=== PATIENT | female | born 1980 ===

== ENCOUNTER 2017-04-19 16:28 | Observation (INO) | payer OTHER ==
[2017-04-19 16:39] VITALS: BP 118/75; PULSE 81; RESP 16; TEMP 99.7; O2SAT 99
--- NOTE | 2017-04-19 17:30 | ED PDOC ---
HPI: Female Pain Chief Complaint (Provider): problems with urination History Per: Patient History/Exam Limitations: no limitations Onset/Duration Of Symptoms: Hrs (6) Current Symptoms Are (Timing): Still Present Quality Of Discomfort: Sharp, Other ("pop") Associated Symptoms: Constipation, Urinary Symptoms. denies: Fever, Chills, Nausea, Vomiting, Diarrhea, Loss Of Appetite, Back Pain, Chest Pain Alleviating Factors: None Additional Complaint(s): Pt is 36 yo F with PMH constipation who presents to the ED today 04/19/17 due to issues with urination. Pt states that she is always constipated, and this morning was straining to stool while she was urinating and heard a "pop." Later in the day she felt a sharp pain upon urination, and thought it may be a UTI. She went to pharmacy after work and bought AZO, which she states usually helps her with symptoms of a UTI, which she has had before. When she urinated again after taking AZO, pt states she did not have a bowel movement and there were no feces in the toilet, but she saw and smelled feces on the toilet paper after wiping. When pt was asked for urine sample in the ED, she said that once again she saw and smelled feces. Abnormal Vaginal Bleeding: No Last Menstral Period: last week, pt does not remember exact date : 2 (aborta 1) Para: 1 <Vira Jacobsen - Last Filed: 04/19/17 19:01> <Emy Jackson - Last Filed: 04/23/17 16:26> Time Seen by Provider: 04/19/17 16:44 Chief Complaint (Nursing): Female Genitourinary Supervising Attending Note - Supervising Attending Note The Documented history was done by the: Physician Claim Rep, Attending Physician The documented physical exam was done by the: Physician Claim Rep, Attending Physician - Attestation: I have personally seen and examined this patient.: Yes I have fully participated in the care of the patient.: Yes I have reviewed all pertinent clinical information, including history, physical exam and plan: Yes <Emy Jackson - Last Filed: 04/23/17 16:26> Past Medical History Reviewed: Historical Data, Nursing Documentation, Vital Signs Vital Signs: Last Vital Signs Temp 99.7 F H 04/19/17 16:36 Pulse 81 04/19/17 16:36 Resp 16 04/19/17 16:36 BP 118/75 04/19/17 16:36 Pulse Ox 99 04/19/17 16:36 - Medical History PMH: No Chronic Diseases - Surgical History Surgical History: - Family History Family History: States: No Known Family Hx - Social History Alcohol: None Drugs: Denies <Vira Jacobsen - Last Filed: 04/19/17 19:01> Vital Signs: Last Vital Signs Temp 99.7 F H 04/19/17 16:36 Pulse 81 04/19/17 16:36 Resp 16 04/19/17 16:36 BP 118/75 04/19/17 16:36 Pulse Ox 99 04/19/17 22:17 <Emy Jackson - Last Filed: 04/23/17 16:26> - Allergies Allergies/Adverse Reactions: Allergies Allergy/AdvReac Type Severity Reaction Status Date / Time No Known Allergies Allergy Verified 04/19/17 16:36 Review of Systems ROS Statement: Except As Marked, All Systems Reviewed And Found Negative Gastrointestinal: Positive for: Constipation (chronic, last BM prior to this morning 1 week ago). Negative for: Nausea, Vomiting, Abdominal Pain, Diarrhea Genitourinary Female: Positive for: Dysuria, Other (as per HPI, pt sees/smells feces on toilet paper after wiping after urinating.). Negative for: Frequency, Incontinence, Hematuria <DelmarJaea - Last Filed: 04/19/17 19:01> Physical Exam - Reviewed Nursing Documentation Reviewed: Yes Vital Signs Reviewed: Yes - Physical Exam Appears: Positive for: Non-toxic, No Acute Distress Head Exam: Positive for: ATRAUMATIC Skin: Positive for: Warm, Dry Eye Exam: Positive for: Normal appearance, EOMI, PERRL ENT: Negative for: Pharyngeal Erythema, Tonsillar Exudate Neck: Positive for: Normal, Painless ROM, Supple Cardiovascular/Chest: Positive for: Regular Rate, Rhythm. Negative for: Murmur Respiratory: Positive for: Normal Breath Sounds. Negative for: Accessory Muscle Use, Wheezing, Respiratory Distress Gastrointestinal/Abdominal: Positive for: Bowel Sounds, Soft. Negative for: Tenderness, Organomegaly, Mass, Guarding Pelvic Exam: Positive for: External Exam Normal, Other (no obvious abnormality) . Negative for: Discharge (no obvious discharge) Back: Positive for: L CVA Tenderness (very mild). Negative for: R CVA Tenderness Extremity: Positive for: Normal ROM. Negative for: Deformity Neurologic/Psych: Positive for: Alert, Oriented <Vira Jacobsen - Last Filed: 04/19/17 19:01> - Laboratory Results Result Diagrams: 04/19/17 18:31 04/19/17 18:31 - ECG O2 Sat by Pulse Oximetry: 99 <Vira Jacobsen - Last Filed: 04/19/17 19:01> - Laboratory Results Result Diagrams: 04/19/17 18:31 04/19/17 18:31 <Emy Jackson - Last Filed: 04/23/17 16:26> Medical Decision Making Medical Decision Making: Pt seen, examined, evaluated. 17:00 -Urine dip: positive for nitrates -UA/Urine C&S 17:30 External pelvic exam done- no lesions, no obvious discharge visible. Pt urinated once more in ED, stated she saw blood in urine. - CBC - CMP - PT/PTT - NS hydration - PO contrast ordered to prep pt for possible CT. 18:20 -UA + for nitrates and 4 urobili 18:45 -CT w/ PO contrast ordered to r/o fistula Case discussed with Dr. Jackson <Vira Jacobsen - Last Filed: 04/19/17 19:01> Disposition - Patient ED Disposition Is Patient to be Admitted: Transfer of Care (to Dr. Jackson) - Disposition Disposition Time: 19:01 <Vira Jacobsen - Last Filed: 04/19/17 19:01> <Emy Jackson - Last Filed: 04/23/17 16:26> - Clinical Impression Clinical Impression: Urinary tract infection - Disposition Condition: STABLE
[2017-04-19] MEDS ORDERED: Iohexol 240 (50 ml) PO STA (17:57)
[2017-04-19] MEDS ORDERED: Sodium Chloride 0.9% 1,000 ML IV STA (17:57)
[2017-04-19 18:13] LABS: RBC URINE < 1 /hpf (0-3); URINE BACTERIA RARE (<OCC); URINE BILIRUBIN NEGATIVE (NEGATIVE); URINE BLOOD SMALL (NEGATIVE); URINE COLOR AMBER (YELLOW); URINE GLUCOSE (UA) NEG (Normal); URINE KETONE NEGATIVE (NEGATIVE); URINE LEUKOCYTE ESTERASE NEG Leu/uL (Negative); URINE PROTEIN NEGATIVE (NEGATIVE); WBC URINE 1 /hpf (0-5)
[2017-04-19] MEDS ORDERED: Iohexol 240 (50 ml) ONE (18:32)
[2017-04-19 18:37] LABS: BASO # 0.1 K/uL (0.0-0.2); BASO % 1.1 % (0.0-2.0); EOS # 0.2 K/uL (0.0-0.7); EOS % 2.9 % (0.0-4.0); HEMATOCRIT 41.5 % (34.0-47.0); LYMPH % 33.3 % (20.0-40.0); MEAN CELL VOLUME 84.7 fl (81.0-99.0); MEAN CORPUSCULAR HEMOGLOBIN 28.4 pg (27.0-31.0); MEAN CORPUSCULAR HGB CONC 33.5 g/dL (33.0-37.0); MONO # 0.4 K/uL (0.0-0.8); MONO % 7.2 % (0.0-10.0); NEUT # 3.3 K/uL (1.8-7.0); NEUT % 55.5 % (50.0-75.0); NRBC % 0.1 % (0.0-0.0); RED CELL DISTRIBUTION WIDTH 13.3 % (11.5-14.5)
[2017-04-19 18:46] LABS: ALB/GLOB RATIO 1.5 (1.0-2.1); ALKALINE PHOSPHATASE 51 U/L (38-126); ALT/SGPT 20 U/L (9-52); AST/SGOT 22 U/L (14-36); BILIRUBIN,TOTAL 0.5 mg/dl (0.2-1.3); BLOOD UREA NITROGEN 13 mg/dl (7-17); CARBON DIOXIDE 23 mmol/L (22-30); CHLORIDE 106 mmol/L (98-107); GFR AFRICAN-AMERICAN > 60; GLUCOSE,RANDOM 79 mg/dL (65-105); SODIUM 142 mmol/l (132-148); TOTAL PROTEIN 8.1 G/DL (6.3-8.2)
[2017-04-19 18:48] LABS: PARTIAL THROMBOPLASTIN TIME 29.9 Seconds (25.6-37.1)
[2017-04-19] MEDS ORDERED: cefTRIAXone (Rocephin) 1 gm Inj ONE (19:40)
--- NOTE | 2017-04-19 22:07 | ED PDOC ---
- Laboratory Results Result Diagrams: 04/19/17 18:31 04/19/17 18:31 - ECG O2 Sat by Pulse Oximetry: 99 (RA) Pulse Ox Interpretation: Normal Medical Decision Making Medical Decision Making: Receiving sign out: Patient signed out to me by Dr. Jacobsen (resident) pending CT results.. Scribe Attestation: Documented by Rula Chan acting as a scribe for Emy Jackson MD. Provider Attestation: All medical record entries made by the Scribe were at my direction and personally dictated by me. I have reviewed the chart and agree that the record accurately reflects my personal performance of the history, physical exam, medical decision making, and the department course for this patient. I have also personally directed, reviewed, and agree with the discharge instructions and disposition. Disposition Counseled Patient/Family Regarding: Studies Performed, Diagnosis, Need For Followup, Rx Given - Clinical Impression Clinical Impression: Urinary tract infection - POA Present On Arrival: None - Disposition Disposition: Routine/Home Disposition Time: 18:00 Condition: STABLE Progress Note - Review of Symptoms Events since last encounter: Time: 1999 Patient stable, resting in room. EXAM: CT Abdomen and Pelvis Without Intravenous Contrast EXAM DATE/TIME: 04/19/2017 6:52 PM CLINICAL HISTORY: 36 years old, female; Signs and symptoms; Constipation and other: R/O fistula; Prior surgery; Surgery date: 6+ months; Surgery type: 1 ; Additional info: Fecal urination R/O fistula. Sent phy. Doc. TECHNIQUE: Axial computed tomography images of the abdomen and pelvis without intravenous contrast. All CT scans at this facility use one or more dose reduction techniques, viz.: automated exposure control; ma/kV adjustment per patient size (including targeted exams where dose is matched to indication; i.e. head); or iterative reconstruction technique. Coronal and sagittal reformatted images were created and reviewed. COMPARISON: No relevant prior studies available. FINDINGS: Lower thorax: No acute findings. ABDOMEN: Liver: Unremarkable. Gallbladder and bile ducts: Unremarkable. No calcified stones. No ductal dilation. Pancreas: Unremarkable. No ductal dilation. Spleen: Unremarkable. No splenomegaly. Adrenals: Unremarkable. No mass. Kidneys and ureters: Unremarkable. No obstructing stones. No hydronephrosis. No convincing or secondary evidence of a bowel fistula to the ureters. Stomach and bowel: No evidence of a colovesical fistula as the colon does not make contact with the urinary bladder. Few loops of small bowel contact a short segment of the anterior bladder although there is no evidence of fistula, soft tissue thickening or contrast within the urinary bladder to suggest an enterovesical fistula. The anteverted uterus rests on and naik the majority of the urinary bladder from the bowel. No convincing or secondary evidence of a fistula to the ureters. No obstruction. Appendix: No findings to suggest acute appendicitis. PELVIS: Bladder: See above. Reproductive: See above. ABDOMEN and PELVIS: Intraperitoneal space: Unremarkable. No free air. No significant fluid collection. Bones/joints: No acute fracture. No dislocation. Soft tissues: Unremarkable. Vasculature: Unremarkable. No abdominal aortic aneurysm. Lymph nodes: Unremarkable. No enlarged lymph nodes. IMPRESSION: No evidence of a colovesical fistula as the colon does not make contact with the urinary bladder, and no evidence of an enterovesical fistula. No acute finding. Thank you for allowing us to participate in the care of your patient. Dictated and Authenticated by: Avery Bishop MD 04/19/2017 9:46 PM Eastern Time ([place] & [place])
--- NOTE | 2017-04-20 07:23 | CT ---
PROCEDURE: CT Abdomen and Pelvis with Oral contrast. HISTORY: fecal urination r/o fistula COMPARISON: None. TECHNIQUE: Contiguous axial images of the abdomen and pelvis. Oral contrast was administered. No IV contrast given. Coronal and Sagittal reformats generated. Radiation dose: Total exam DLP = 261 mGy-cm. This CT exam was performed using one or more of the following dose reduction techniques: Automated exposure control, adjustment of the mA and/or kV according to patient size, and/or use of iterative reconstruction technique. FINDINGS: LOWER THORAX: No pleural or pericardial effusion is identified. A punctate calcified granuloma is seen at the right lower lobe within the costophrenic sulcus laterally with linear atelectasis or fibrosis minimally seen in the right middle lobe and right lower lobe bases. LIVER: Unremarkable. No gross lesion or ductal dilatation. GALLBLADDER AND BILE DUCTS: Unremarkable. PANCREAS: Unremarkable. No mass. No ductal dilatation. SPLEEN: Unremarkable. No splenomegaly. ADRENALS: Unremarkable. KIDNEYS AND URETERS: Unremarkable. No stone or hydronephrosis. BLADDER: Urinary bladder appears mildly distended. There is no oral contrast identified within the lumen of the urinary bladder. Oral contrast opacifies large and small bowel up to the mid to distal sigmoid colon but none at the distal rectosigmoid region. A colovesical fistula is not been proven. Consider follow-up cystogram and potential post cystogram CT without any contrast, through the pelvis. REPRODUCTIVE: Unremarkable. APPENDIX: Unremarkable. BOWEL: A mild amount of retained fecal material seen primarily at the distal colon including the rectum. No obstruction. No gross mural thickening. PERITONEUM: Unremarkable. No fluid collection. No free air. LYMPH NODES: Unremarkable. No enlarged lymph nodes. VASCULATURE: Unremarkable. No aortic aneurysm. BONES: No fracture or destructive lesion. OTHER FINDINGS: None. IMPRESSION: No direct CT evidence of colovesical fistula. No oral contrast or gas is seen within the lumen of the urinary bladder which is mildly distended. If not already performed, consider cystogram and possible post cystogram CT through the pelvis without contrast. This should not be performed prior to clearance of oral contrast material from large and small bowel.
== END 2017-04-19 23:17 | disposition home or self-care (01) ==
LOC: H.ER 16:28 → H.EROBSV 17:57
PROVIDERS: ADMIT Emergency Medicine; ATTEND Emergency Medicine
DX: N39.0 Urinary tract infection, site not specified (principal); K59.00 Constipation, unspecified
CPT/HCPCS: 36415; 74176; 80053; 81003; 81025; 85025; 85610; 85730; 87086; 96360; 99282; G0378; J0696; J7040; Q9966

== ENCOUNTER 2017-11-10 09:46 | Emergency (ER) | payer OTHER ==
[2017-11-10 09:47] VITALS: BMI 18.1
[2017-11-10 10:04] VITALS: BP 121/82; PULSE 78; RESP 18; TEMP 98.7; O2SAT 99
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
== END 2017-11-10 11:48 | disposition home or self-care (01) ==
LOC: H.ER 09:46
DX: S09.90XA Unspecified injury of head, initial encounter (principal); V48.5XXA Car driver injured in noncollision transport accident in traffic accident, initial encounter; Y92.480 Sidewalk as the place of occurrence of the external cause